=== PATIENT | male | born 1990 | race Two or more races ===

== ENCOUNTER 2024-03-29 02:54 | Emergency (ER) | payer OTHER ==
[~2024-03-29] VITALS: Ht 177.8 cm; Wt 101.0 kg
[2024-03-29 04:11] LABS: GLUCOMETER DEV NAME(LOC) ERT.5; GLUCOSE,POINT OF CARE 108 MG/DL (70-110)
[2024-03-29] MEDS: LIDOCAINE 1% 10 ML VIAL SQ ONE (05:14)
[2024-03-29 06:09] LABS: INFLUENZA A-RTPCR,COMBO NEGATIVE (NEGATIVE); INFLUENZA B-RTPCR,COMBO NEGATIVE (NEGATIVE); RESPIRATORY SYNCYTIAL VRS-PCR NEGATIVE (NEGATIVE)
[2024-03-29] MEDS: CEPHALEXIN MONOHYDRATE 500 MG CAPSULE PO ONE (06:17)
[2024-03-29] MEDS: DOXYCYCLINE HYCLATE 100 MG TABLET PO ONE (06:17)
[2024-03-29 06:19] LABS: SARS COVID19 RTPCR, COMBO POSITIVE (NEGATIVE)
[2024-03-29 06:24] VITALS: BP 125/70; PULSE 73; RESP 20; TEMP 97.3
== END 2024-03-29 06:52 | disposition home or self-care (01) ==
LOC: EMS 02:54
DX: U07.1 COVID-19 (principal); L03.114 Cellulitis of left upper limb
CPT/HCPCS: 99284; 0241U; 71045; 82962; J3490